=== PATIENT | male | born 1990 | race Caucasian/White ===

== ENCOUNTER 2016-12-05 14:17 | Emergency (ER) | payer OTHER ==
[~2016-12-05] VITALS: Ht 185.4 cm; Wt 86.1 kg
[2016-12-05 14:22] VITALS: TEMP 37; Ht 185.4 cm; Wt 86.1 kg
[2016-12-05] MEDS ORDERED: XYLOCAINE 1%/SOD BICARB 20 ML VIAL INFIL STA (14:36)
[2016-12-05] MEDS ORDERED: DIPHTHERIA/TETANUS/PERTUSSIS 0.5 ML SYR/VIAL IM. ONE (14:45)
--- NOTE | 2016-12-05 15:46 | EMERGENCY ROOM VISIT NOTE ---
ED Visit Note First contact with patient: 14:26 Chief Complaint: "Cut on hand-Work related injury" History of Present Illness: This patient is a 26-year-old male who presents to the Emergency Department in private vehicle for evaluation of their right dorsal hand laceration. Patient sustained the laceration while working earlier today, and accidentally struck upon a metal tool. They report a moderate amount of bleeding initially. They any numbness or tingling into the distal extremity. They report no decreased range of motion of the affected digit. Patient rates his current discomfort as a 0/10. Patient's Tetanus status is not currently up-to-date. He declines tetanus immunization today. Medications: None Allergies: No known allergies PMH: No pertinent past medical history at this time. SHx: Patient is currently employed. ROS: All pertinent positive and negative review of systems are appropriately documented in the History of Present Illness. Physical Exam: VITAL SIGNS - Vital signs and nursing notes were reviewed. GENERAL -26-year-old male appearing his stated age who is in no acute distress. Communicates well with provider and answers questions appropriately. SKIN - There is a 2 cm long laceration noted over the dorsal aspect of the right hand overlying the MCP joint. The edges gape apart with traction. No foreign bodies appreciated. Upon further examination there are no deep structures including vessel, tendon, or bony structures appreciated. There is no active bleeding noted. MUSCULOSKELETAL - Laceration as described above. +5/5 strength appreciated of the affected digit. Full range of motion of the affected digit. NEUROLOGIC - Spinothalamic tract was found to be intact with ability to discriminate sharp versus dull sensation. No sensory defects of the dorsal column were appreciated utilizing light touch for evaluation. VASCULAR - Capillary refill was brisk. ED Course: Patient was seen and evaluated by myself. Risks and benefits of performing primary wound closure versus no repair were discussed with the patient who verbalizes understanding. Verbal consent was obtained prior to performing the procedure. 2 cc of 1% buffered lidocaine was used to anesthetize the region. The wound was cleansed and prepped in the typical sterile fashion utilizing normal saline and Betadine. The wound was sterilely draped. Once proper anesthetization was established, the wound was further examined and demonstrated a clean linear laceration. The wound was copiously irrigated with normal saline and Betadine. The wound was closed using 4 simple, 4-0 nylon sutures with the wound edges being well approximated. Patient tolerated the procedure well. No complications were met. The wound was cleansed and dressed with a Bacitracin dressing. A metal splint was applied to the finger for comfort. He declined his Adacel injection. Patient educated on worrisome symptoms for return visit to the Emergency Department. He is to follow-up with his Workmen's Compensation individuals. Patient discharged to home in good condition. In the evaluation and treatment of this patient following differential diagnoses were entertained: Laceration, abrasion, among others. Current/Historical Medications No Active Prescriptions or Reported Meds Allergies Coded Allergies: No Known Allergies (Unverified , 12/05/16) Vital Signs Date Time Temp Pulse Resp B/P Pulse Ox O2 Delivery O2 Flow Rate FiO2 12/05/16 15:55 73 16 137/89 97 12/05/16 14:22 37.0 83 18 144/86 98 Room Air Departure Information Impression Primary Impression: Laceration Dispostion Home / Self-Care Condition GOOD Prescriptions No Active Prescriptions or Reported Meds Referrals Triston Casillas M.D. (PCP) Patient Instructions My [facility] Additional Instructions Discharge Instructions: You have received 4 sutures on your left hand. These sutures are NOT dissolvable and WILL need to be removed by a health care provider in 12 days. You can return to the Emergency Department or contact your Primary Care Provider to have the sutures removed. Please wear the splint for comfort until the sutures are removed. Proper wound care is essential for adequate wound healing and infection prevention. You can shower and clean the wound with soap and water. Do not scour over the wound, pat dry with a towel. Do not submerse the wound (i.e. bathe or dish wash) until the sutures have been removed. You can use an antibiotic ointment with a dressing over the wound for the next 3-4 days. After this time you may leave the wound dry and open to the air. If crust develops over the wound you can use a Q-tip to apply a 1:1 peroxide:water solution to clean the wound. Look for signs of infection of the wound including: increased pain, swelling, foul discharge, streaking, or increased temperature. If any of these are noticed you should return to the Emergency Department for further assessment and treatment. As with any laceration you may have received nerve damage to the surrounding tissues. This damage may or may not be permanent. You should keep the area covered with sunscreen for the first 6 months to 1 year when at risk for exposure to help minimize scarring. You can also use scar reducing creams or Vitamin E oil to help minimize scarring. For pain control, you can use the following [id number] medicines (if >12 yo): - Regular strength (325mg/tab) Tylenol (acetaminophen) 2 tabs every 4-6 hours as needed. Do not exceed 12 tablets in a 24 hour period. Avoid taking more than 4 grams (4000 mg) of Tylenol per day. This includes any other sources of acetaminophen you may take on a regular basis. - Regular strength (200 mg/tab) Advil (ibuprofen) 1-2 tabs every 4-6 hours as needed. Do not exceed a dose of 3200 mg per day. Return to the emergency department if your symptoms worsen despite treatment course outlined above. Please follow-up with your employer's Workmen's Compensation individuals for further evaluation and management. Please return to emergency department with any new/concerning symptoms
[2016-12-05 15:55] VITALS: BP 137/89; PULSE 73; O2SAT 97
== END 2016-12-05 16:00 | disposition home or self-care (01) ==
LOC: C.EDB 14:19 → C.EDD 16:00
DX: S61.411A Laceration without foreign body of right hand, initial encounter (principal); W22.8XXA Striking against or struck by other objects, initial encounter; Y99.0 Civilian activity done for income or pay

== ENCOUNTER 2016-12-19 12:03 | Emergency (ER) | payer OTHER ==
[~2016-12-19] VITALS: Ht 185.4 cm; Wt 86.0 kg
[2016-12-19 12:07] VITALS: BP 131/94; PULSE 76; TEMP 36.9; O2SAT 97; Ht 185.4 cm; Wt 86.0 kg
--- NOTE | 2016-12-19 12:44 | EMERGENCY ROOM VISIT NOTE ---
History First contact with patient: 12:38 Chief Complaint: SUTURE/STAPLE REMOVAL Stated Complaint: GETTING STITCHES REMOVED Nursing Triage Summary: patient here to have sutures removed from right hand History of Present Illness The patient is a 26 year old male who presents to the Emergency Room for suture removal from a right hand laceration that was repaired in our department 14 days ago. The patient denies any wound complications. Review of Systems Noncontributory Past Medical/Surgical History Well documented on previous visit Social History Smoking Status: Never Smoker Current/Historical Medications No Active Prescriptions or Reported Meds Allergies Coded Allergies: No Known Allergies (Unverified , 12/05/16) Physical Exam Vital Signs Date Time Temp Pulse Resp B/P Pulse Ox O2 Delivery O2 Flow Rate FiO2 12/19/16 12:07 36.9 76 20 131/94 97 Room Air Physical Exam MUSCULOSKELETAL: Examination shows a well-healed laceration on the dorsal aspect of the right hand. All sutures were removed without any complications. Medical Decision & Procedures ED Course The patient was provided additional verbal wound care instructions, and instructed to follow-up with his PCP as needed. Medical Decision Impression Primary Impression: Encounter for removal of sutures Additional Impression: Laceration of right hand Departure Information Prescriptions No Active Prescriptions or Reported Meds Referrals No Doctor, Assigned (PCP) Patient Instructions [facility] Health Problem Qualifiers Additional Impression: Laceration of right hand Encounter type: subsequent encounter
== END 2016-12-19 12:49 | disposition home or self-care (01) ==
LOC: C.EDB 12:04 → C.EDD 12:49
DX: Z48.02 Encounter for removal of sutures (principal); S61.411D Laceration without foreign body of right hand, subsequent encounter; X58.XXXD Exposure to other specified factors, subsequent encounter